=== PATIENT | male | born 1985 | race Caucasian/White ===

== ENCOUNTER 2018-04-17 18:52 | Emergency (ER) | payer BC, OTHER ==
[2018-04-17 19:05] VITALS: BP 134/73
--- NOTE | 2018-04-17 20:35 | UC ---
Upper Extremity HPI - HPI Summary HPI Summary: 32 yo gentleman c/o progressive L elbow redness and swelling x approx one week. No diirect trauma. No fever / chills. Right handed. 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 No p/d/ distal weakness. No hx of similar issues. Sign PMH - sarcoidosis, takes chronic immunosuppressives. No current or recent abx. - History of Current Complaint Chief Complaint: UCUpperExtremity Stated Complaint: SWOLLEN ELBOW Time Seen by Provider: 04/17/18 20:12 Hx Obtained From: Patient Pain Intensity: 3 - Allergies/Home Medications Allergies/Adverse Reactions: Allergies Allergy/AdvReac Type Severity Reaction Status Date / Time No Known Allergies Allergy Verified 04/17/18 19:05 Home Medications: Home Medications Ascorbic Acid TAB* [Vitamin C TAB*] 500 mg PO DAILY 04/17/18 [History Confirmed 04/17/18] Folic Acid TAB* [Folvite TAB*] 1 mg PO DAILY 04/17/18 [History Confirmed ] Methotrexate TAB* 20 mg PO WEEKLY 04/17/18 [History Confirmed 04/17/18] Omeprazole CAP* [Prilosec CAP* 20 MG] 40 mg PO DAILY 04/17/18 [History Confirmed 04/17/18] PARoxetine HCL TAB* [Paxil TAB*] 10 mg PO DAILY 04/17/18 [History Confirmed ] Tiotropium CAP.INH* [Spiriva CAP.INH*] 18 mcg PO DAILY 04/17/18 [History Confirmed 04/17/18] PMH/Surg Hx/FS Hx/Imm Hx Previously Healthy: Yes - sign pmh see hpi - Surgical History Surgical History: None - Family History Known Family History: Positive: Other - see hpi - Social History Occupation: Employed Full-time Alcohol Use: Rare Substance Use Type: None Smoking Status (MU): Former Smoker Type: Cigarettes Amount Used/How Often: 1PPD for 15+years Length of Time of Smoking/Using Tobacco: 15 YRS Have You Smoked in the Last Year: Yes When Did the Patient Quit Smoking/Using Tobacco: 11/08/15 Household Exposure Type: Cigarettes - Immunization History Most Recent Influenza Vaccination: NEVER Most Recent Tetanus Shot: JANUARY 16, 2012 Most Recent Pneumonia Vaccination: NEVER Review of Systems Constitutional: Negative Skin: Other - see hpi Eyes: Negative ENT: Negative Respiratory: Negative - see hpi Cardiovascular: Negative Gastrointestinal: Negative Genitourinary: Negative Motor: Other - see hpi Neurovascular: Other - see hpi Musculoskeletal: Arthralgia - see hpi Neurological: Negative Psychological: Negative Is Patient Immunocompromised?: Yes - see hpi All Other Systems Reviewed And Are Negative: Yes Physical Exam Triage Information Reviewed: Yes Appearance: Well-Appearing, Well-Nourished Vital Signs: Initial Vital Signs Temp 97.4 F 04/17/18 19:02 Pulse 76 04/17/18 19:02 Resp 18 04/17/18 19:02 BP 134/73 04/17/18 19:02 Pulse Ox 97 04/17/18 19:02 Vital Signs Reviewed: Yes Eye Exam: Normal - grossly normal ENT Exam: Normal Neck exam: Normal Neck: Positive: Supple, Nontender Respiratory Exam: Normal - no tachypnea, no dyspnea. Resp rate regular. Cardiovascular Exam: Normal - heart rate normal. good general color, non- diaphoretic Cardiovascular: Positive: Pulses Normal - L rad / ulna pulses palpable, Brisk Capillary Refill Abdominal Exam: Normal Abdomen Description: Positive: Nontender Musculoskeletal Exam: Other - moves x 4 ext's gait steady. L elbow with redness , warm (not hot) to touch, approx 10cm x 13cm. + loose fluctuance appreciated L elbow approx location of ulna bursa. Able to move elbow in all directions, able to straighten although straightening is uncomfortable. No distal or prox issues. Ax n sens LT present. Shoulder and distal LUE moves well. Neurological Exam: Normal - grossly nonfocal Psychological Exam: Normal - conversing easily and appropriately Skin Exam: Normal - see "musc skel" re L elbow skin, o/w without visible or reported rash Upper Extremity Course/Dx - Course Course Of Treatment: Diff dx is extensive, jorje with hx sarcoidosis / chronic immunosuppressive tx. Sling for comfort. Mr. Gama wants to return to work tomorrow, he carefully considered work note, will accept note, but not sure if he will take time off. (I encourage some time away from work which is very physical until eval / tx by orthopedist and pcp.). Labs ordered. Will start abx in light of immunosupp's. Aware to seek medical attention for worse or new issues. Questions as posed answered to the best of my ability. - Differential Dx/Diagnosis Provider Diagnoses: Left elbow redness, swelling. Consider bursitis. See MDM. Discharge - Sign-Out/Discharge Documenting (check all that apply): Patient Departure - Discharge Plan Condition: Stable Disposition: HOME Prescriptions: DOXYcycline CAP(*) [DOXYcycline 100MG CAP(*)] 100 mg PO BID 14 Days #28 cap Patient Education Materials: Elbow Bursitis (ED) Forms: *Work Release Referrals: Aniceto Caraballo MD [Primary Care Provider] - Nurys Carson MD [Medical Doctor] - Additional Instructions: Follow up with Dr Caraballo in the next 1-2 weeks, re blood work review (also blood pressure recheck - today 134/73). Follow up with orthopedic surgeon - 2 days. Seek medical attention (Emergency Department) for worse or new problems. Sling - as needed for comfort. - Billing Disposition and Condition Condition: STABLE Disposition: Home
[2018-04-17] MEDS ORDERED: DOXYcycline CAP(*) 100 MG PO ONE (21:32)
--- NOTE | 2018-04-18 07:25 | RAD ---
Indication: Redness and swelling around the left elbow. 4 views of the left elbow demonstrates no fracture. No other bone or joint abnormality is noted. IMPRESSION: Unremarkable left elbow.
[2018-04-18 11:36] LABS: ABS Basophils 0 10^3/ul (0-0.2); ABS Eosinophils 0.2 10^3/ul (0-0.6); ABS Lymphocytes 0.6 10^3/ul (1.0-4.8); ABS Monocytes 0.7 10^3/ul (0-0.8); ABS Neutrophils 5.2 10^3/ul (1.5-7.7); ABS Nucleated RBC 0 10^3/ul; Eosinophil % 3.2 % (0-6); Hematocrit 41 % (42-52); Lymphocyte % 8.9 % (25-47); Mean Corpuscular HGB Conc 34 g/dl (31-36); Mean Corpuscular Hemoglobin 31 pg (27-31); Mean Corpuscular Volume 91 fL (80-94); Mean Platelet Volume 9.1 um3 (7.4-10.4); Nucleated Red Blood Cells % 0.1; Platelet Count 231 10^3/ul (150-450); Red Blood Count 4.45 10^6/ul (4.00-5.40); Red Cell Distribution Width 15 % (10.5-15); White Blood Count 6.8 10^3/ul (3.5-10.8)
[2018-04-18 12:35] LABS: EGFR Non-African American 78.7 (>60); Uric Acid 7.1 mg/dL (4.4-7.6)
== END 2018-04-17 21:44 | disposition home or self-care (01) ==
LOC: UCEAST 18:52
DX: M25.422 Effusion, left elbow (principal); L53.8 Other specified erythematous conditions
CPT/HCPCS: 36415; 80048; 84550; 85025; 85652; 86140; 86431; 86618; 99212; A9270-GY; G0463